=== PATIENT | male | born 1995 | race Caucasian/White ===

== ENCOUNTER 2020-04-27 10:11 | Emergency (ER) | payer SELFPAY ==
[2020-04-27 10:32] VITALS: BP 131/94
[2020-04-27] MEDS ORDERED: LIDOCAINE (2%) 20 MG/1 ML VIAL 20 ML MDV INFILTRATI ONE (10:41)
[2020-04-27] MEDS ORDERED: DIPHtheria,PERTUSSIS(ACELL),TETANUS VACCINE/PF 0.5 ML VIAL IM ONE (10:41)
--- NOTE | 2020-04-27 11:13 | XRay Report ---
RIGHT FINGERS 3 VIEWS INDICATION: laceration with pain/thumb. COMPARISON: None. IMPRESSION: No acute osseous or soft tissue abnormality. No significant DJD. Signer Name: Dominick Cornell Jr, MD Signed: 04/27/2020 11:09 AM Workstation Name: [id number]
--- NOTE | 2020-04-27 11:18 | Emergency Department Report ---
ED Laceration HPI - HPI Chief Complaint: Wound/Laceration Stated Complaint: RT THUMB LACERATION Time Seen by Provider: 04/27/20 10:34 Occurred When: Before Yesterday Location: Upper Extremity Severity: mild Tetanus Status: Not up to Date Laceration Symptoms: Yes Pain, No Foreign Body Sensation, No Numbness, No Weakness Other History: This is a 24-year-old male nontoxic, well nourished in appearance, no acute signs of distress presents to the ED with c/o of left thumb laceration that occurred 2 days ago. Patient stated he was changing and cleaning his gun which the corner of it caused a laceration. Patient denies decreased sensation or range of motion. Patient stated bleeding is under control. Denies any numbness, tingling, fever, chills, nausea, vomiting, chest pain, shortness of breath, headache or stiff neck. Patient denies any allergies to significant past medical history. Patient is that he is not up-to-date with tetanus. ED Review of Systems ROS: Stated complaint: RT THUMB LACERATION Other details as noted in HPI Comment: All other systems reviewed and negative Constitutional: denies: chills, fever Eyes: denies: eye pain, eye discharge, vision change ENT: denies: ear pain, throat pain Respiratory: denies: cough, shortness of breath, wheezing Cardiovascular: denies: chest pain, palpitations Endocrine: no symptoms reported Gastrointestinal: denies: abdominal pain, nausea, diarrhea Genitourinary: denies: urgency, dysuria Musculoskeletal: denies: back pain, joint swelling, arthralgia Skin: denies: rash, lesions Neurological: denies: headache, weakness, paresthesias Psychiatric: denies: anxiety, depression Hematological/Lymphatic: denies: easy bleeding, easy bruising ED Past Medical Hx - Past Medical History Previous Medical History?: No - Surgical History Past Surgical History?: No - Social History Smoking Status: Never Smoker Substance Use Type: None - Medications Home Medications: Home Medications Medication Instructions Recorded Confirmed Last Taken Type Cyclobenzaprine [Flexeril] 10 mg PO TID PRN #20 tablet 11/03/15 Unknown Rx Diclofenac Sodium 75 mg PO BID #14 tablet. 11/03/15 Unknown Rx HYDROcodone/APAP 5-325 [[place] 1 each PO Q6HR PRN #7 tablet 11/03/15 Unknown Rx 5/325] Clindamycin [Clindamycin CAP] 300 mg PO Q8H #21 cap 04/27/20 Unknown Rx Laceration Physical Exam - Exam General: Vital signs noted. No distress. Alert and acting appropriately. Neurovascular within normal limits EXTREMITIES: Without any cyanosis, clubbing, rash, lesions or edema. Peripheral pulses intact. Capillary refill less than 2 seconds. Full range of motion bilaterally. Wound Length (cm): 2 (Left proximal thumb) Laceration Location: Upper Extremity Laceration Exam: Yes Normal Distal CMS, No Foreign Body, No Exposed Tendon, Vessel, or Nerve, No Tendon Injury ED Course Vital Signs 04/27/20 10:30 Temperature 98.7 F Pulse Rate 84 Respiratory 20 Rate Blood Pressure 131/94 O2 Sat by Pulse 99 Oximetry - Reevaluation(s) Reevaluation #1: 04/27/20 11:14 Patient is speaking in full sentences with no signs of distress noted. - Laceration /Wound Repair Left Finger Wound Location: upper extremity (left thumb) Wound Length (cm): 2 Wound's Depth, Shape: superficial Wound Explored: clean Irrigated w/ Saline (ccs): 40 Betadine Prep?: Yes Volume Anesthetic (ccs): 2 (2% lidocaine plain) Wound Repaired With: sutures Suture Size/Type: 4:0, proline Number of Sutures: 2 (Loosely) Layer Closure?: No Sterile Dressing Applied?: Yes Progress: Under sterile field, I used Betadine to clean the area. I then used 40 mL of normal saline to flush the area. I then used 2% lidocaine plain and injected 2 mL to the wound. I then used a 4-0 Prolene to suture the laceration. Number of stitches 2 running sutures very loosely. I then applied a sterile 4 x 4 with tape. Minimal bleeding noted but is under control. Patient tolerated procedure well with no signs of distress. ED Medical Decision Making - Radiology Data Referring Physician: NAEL DAWSON Patient Name: DELISA GAO Date of : 1995 Sex: Male Report Date: 2020-04-27 Report Status: Finalized [facility] [address] [place] [address] XRay Report Signed Patient: DELISA GAO MR #: [id number] : 1995 Acct:[id number] Age/Sex: 24 / M ADM Date: 04/27/20 Loc: ED Attending Dr: Ordering Physician: NAEL DAWSON NP Date of Service: 04/27/20 Procedure(s): XR finger(s) 2+V RT Accession Number(s): [id number] cc: NAEL DAWSON NP Fluoro Time In Minutes: RIGHT FINGERS 3 VIEWS INDICATION: laceration with pain/thumb. COMPARISON: None. IMPRESSION: No acute osseous or soft tissue abnormality. No significant DJD. Signer Name: Dominick Cornell Jr, MD Signed: 04/27/2020 11:09 AM Workstation Name: [id number] Transcribed By: TTR Dictated By: DOMINICK CORNELL JR, MD Electronically Authenticated By: DOMINICK CORNELL JR, MD Signed Date/Time: 04/27/20 1109 DD/ 1108 TD/TT: - Medical Decision Making This is a 24-year-old male that presents with laceration. Patient is stable and was examined by me. The laceration suturing has been performed very loosly due to the duration of incident and has been performed and patient tolerated well. A sterile dressing has been applied. Patient was educated on proper wound care. Patient is discharged with clinda. Patient was instructed to return in 10 days for suture removal. Patient was instructed to refer to Follow-up with a primary care doctor in 3-5 days or if symptoms worsen and continue return to emergency room as soon as possible. At time of discharge, the patient does not seem toxic or ill in appearance. No acute signs of distress noted. Patient agrees to discharge treatment plan of care. No further questions noted by the patient. Critical care attestation.: If time is entered above; I have spent that time in minutes in the direct care of this critically ill patient, excluding procedure time. ED Disposition Clinical Impression: Laceration of finger of left hand Qualifiers: Encounter type: initial encounter Finger: middle finger Damage to nail status: without damage Foreign body presence: without foreign body Qualified Code(s): S61.213A - Laceration without foreign body of left middle finger without damage to nail, initial encounter Disposition: TO HOME OR SELFCARE Is pt being admited?: No Does the pt Need Aspirin: No Condition: Stable Instructions: Laceration Care, Adult Additional Instructions: Follow-up with a primary care doctor in 3-5 days or if symptoms worsen and continue return to emergency room as soon as possible. Return in 10 days for suture removal Prescriptions: Clindamycin [Clindamycin CAP] 300 mg PO Q8H #21 cap Referrals: PRIMARY CARE, [Primary Care Provider] - 3-5 Days DAVE GRANDE MD [Staff Physician] - 3-5 Days Time of Disposition: 11:18
== END 2020-04-27 11:50 | disposition home or self-care (01) ==
LOC: ED 10:11
DX: S61.213A Laceration without foreign body of left middle finger without damage to nail, initial encounter (principal); Z79.899 Other long term (current) drug therapy; X58.XXXA Exposure to other specified factors, initial encounter; Y93.89 Activity, other specified; Y92.89 Other specified places as the place of occurrence of the external cause; Y99.8 Other external cause status
CPT/HCPCS: 90471; 90715

== ENCOUNTER 2020-05-12 17:53 | Emergency (ER) | payer SELFPAY ==
--- NOTE | 2020-05-12 18:32 | Emergency Department Report ---
Suture/Staple Removal - [facility] Chief Complaint: Laceration/Recheck/Suture Stated Complaint: SUTURE REMOVAL Time Seen by Provider: 05/12/20 18:10 When Sutures or Tej Placed: 04/27/2020 Wound Location: right thumb ED Review of Systems ROS: Stated complaint: SUTURE REMOVAL Other details as noted in HPI Comment: All other systems reviewed and negative ED Past Medical Hx - Past Medical History Previous Medical History?: No - Surgical History Past Surgical History?: No - Social History Smoking Status: Never Smoker Substance Use Type: None - Medications Home Medications: Home Medications Medication Instructions Recorded Confirmed Last Taken Type Cyclobenzaprine [Flexeril] 10 mg PO TID PRN #20 tablet 11/03/15 Unknown Rx Diclofenac Sodium 75 mg PO BID #14 tablet. 11/03/15 Unknown Rx HYDROcodone/APAP 5-325 [[place] 1 each PO Q6HR PRN #7 tablet 11/03/15 Unknown Rx 5/325] Clindamycin [Clindamycin CAP] 300 mg PO Q8H #21 cap 04/27/20 Unknown Rx Suture Removal Exam - Exam General: Vital signs noted. No distress. Alert and acting appropriately. Wound: No Pathologic Erythema, No Tenderness, No Drainage, No Pus, No Wound Dehiscence Other Systems: All other systems reviewed and are unremarkable. ED Recheck MDM - Medical Decision Making Patient is a 24-year-old male presents emergency room for suture removal. He had the sutures placed at this facility on 04/27/2020. It is present to the right dorsal thumb. Sutures appear to be almost out on their own. Wound has already healed. No signs of wound dehiscence, no erythema, no signs of infection, clean, dry, intact. Sutures removed without any difficulty, no bleeding, no drainage. Advised to follow-up with primary care doctor. Return to emergency room for any new or worsening symptoms. Critical care attestation.: If time is entered above; I have spent that time in minutes in the direct care of this critically ill patient, excluding procedure time. ED Disposition Clinical Impression: Encounter for removal of sutures Disposition: DC-01 TO HOME OR SELFCARE Is pt being admited?: No Does the pt Need Aspirin: No Condition: Stable Instructions: Suture Removal, Care After Additional Instructions: Follow-up with your primary care doctor. Return to emergency room for any new or worsening symptoms. Referrals: DAVE GRANDE MD [Staff Physician] - 3-5 Days [facility] [Provider Group] - 3-5 Days Time of Disposition: 18:34 Print Language: TRINIDADIAN
== END 2020-05-12 19:00 | disposition home or self-care (01) ==
LOC: ED 17:53
DX: S61.011D Laceration without foreign body of right thumb without damage to nail, subsequent encounter (principal); X58.XXXD Exposure to other specified factors, subsequent encounter